=== PATIENT | female | born 2000 | race Caucasian/White ===

== ENCOUNTER → 2022-03-21 | Outpatient (CLI) | payer OTHER | LOC: M WHC 11:36 | PROVIDERS: ATTEND Obstetrics & Gynecology | DX: Z36.89 Encounter for other specified antenatal screening (principal) ==

== ENCOUNTER → 2022-03-28 | Outpatient (CLI) | payer OTHER | LOC: M WHC 11:33 | PROVIDERS: ATTEND Obstetrics & Gynecology | DX: O99.213 Obesity complicating pregnancy, third trimester (principal); Z68.41 Body mass index [BMI] 40.0-44.9, adult; Z3A.35 35 weeks gestation of pregnancy ==

== ENCOUNTER → 2022-04-04 | Outpatient (CLI) | payer OTHER | LOC: M WHC 11:27 | PROVIDERS: ATTEND Obstetrics & Gynecology | DX: O24.410 Gestational diabetes mellitus in pregnancy, diet controlled (principal); O99.213 Obesity complicating pregnancy, third trimester; E66.9 Obesity, unspecified; Z68.41 Body mass index [BMI] 40.0-44.9, adult; Z3A.35 35 weeks gestation of pregnancy ==

== ENCOUNTER → 2022-04-11 | Outpatient (CLI) | payer OTHER | LOC: M WHC 11:02 | PROVIDERS: ATTEND Obstetrics & Gynecology | DX: O99.213 Obesity complicating pregnancy, third trimester (principal); Z3A.35 35 weeks gestation of pregnancy; Z68.41 Body mass index [BMI] 40.0-44.9, adult; O24.410 Gestational diabetes mellitus in pregnancy, diet controlled ==

== ENCOUNTER → 2022-04-18 | Outpatient (CLI) | payer OTHER ==
[~2022-04-18] MED LIST: PRENTAB9 PO
== END ==
LOC: M WHC 11:37
PROVIDERS: ATTEND Obstetrics & Gynecology
DX: O99.210 Obesity complicating pregnancy, unspecified trimester (principal); Z68.41 Body mass index [BMI] 40.0-44.9, adult; Z3A.35 35 weeks gestation of pregnancy

== ENCOUNTER 2022-04-19 15:49 | Inpatient (IN) | payer OTHER ==
[2022-04-19] VITALS (16 sets, daily range): BP systolic 122–179; BP diastolic 71–110
[~2022-04-19] VITALS: Ht 157.5 cm; Wt 115.1 kg
[2022-04-19] MEDS ORDERED: PRENTAB9 PO (16:02)
[2022-04-19] MEDS ORDERED: HOME MED LIST COMPLETE! XX SCH (16:05)
[2022-04-19 17:33] LABS: HEMATOCRIT 40.8 % (36.0-47.0); HEMOGLOBIN 14.2 g/dl (12.0-15.5); MEAN CORPUSCULAR HEMOGLOBIN 31.6 pg (27.0-33.0); MEAN CORPUSCULAR HGB CONC 34.8 g/dl (32.0-36.5); MEAN CORPUSCULAR VOLUME 90.9 fl (80.0-96.0); PLATELET COUNT, AUTOMATED 235 10^3/uL (150-450); RED BLOOD COUNT 4.49 10^6/uL (4.00-5.40); WHITE BLOOD COUNT 9.4 10^3/uL (4.0-10.0)
[2022-04-19 17:44] LABS: APPEARANCE, URINE MANUAL CLEAR (CLEAR); BILIRUBIN, URINE MANUAL NEGATIVE (NEGATIVE); COLOR, URINE MANUAL YELLOW (YELLOW); GLUCOSE, URINE (UA) MANUAL NEGATIVE (NEGATIVE); KETONE, URINE MANUAL 1+ mg/dL (NEGATIVE); NITRITE, URINE MANUAL NEGATIVE (NEGATIVE); PROTEIN, URINE MANUAL NEGATIVE (NEGATIVE); SPECIFIC GRAVITY,URINE MANUAL 1.025 (1.002-1.035); UROBILINOGEN, URINE MANUAL NORMAL (NORMAL)
[2022-04-19 17:45] LABS: BLOOD URINE MANUAL POSITIVE (NEGATIVE); LEUKOCYTE ESTERASE, URINE MAN NEGATIVE (NEGATIVE)
[2022-04-19 17:56] LABS: BACTERIA, URINE SMALL AMOUNT; HYALINE CAST, URINE NONE SEEN /lpf (0-1); MUCUS, URINE SMALL AMOUNT (NEGATIVE); SQUAMOUS EPITHELIAL CELL URINE MOD AMOUNT /hpf (SMALL AMT); WBC, URINE 0-1 /hpf (0-3)
[2022-04-19 18:39] LABS: ALT/SGPT 21 U/L (12-78); BILIRUBIN,TOTAL 0.3 MG/DL (0.2-1.0); GLOMERULAR FILTRATION RATE > 60.0 (>60); LDH LACTATE DEHYDROGENASE 251 U/L (84-246); URIC ACID 3.3 MG/DL (2.6-6.0)
[2022-04-19] MEDS ORDERED: LACTATED RINGER'S 1000 ML IV STA (19:09)
[2022-04-19] MEDS ORDERED: LR 1,000 ML IV SCH (19:10)
[2022-04-19] MEDS ORDERED: METHYLERGONOVINE MALEATE 0.2 MG/ML VIAL (J2210) IM PRN (19:10)
[2022-04-19] MEDS ORDERED: CARBOPROST TROMETHAMINE 250 MCG/ML AMP IM PRN (19:10)
[2022-04-19] MEDS ORDERED: LIDOCAINE 1% MDV 20ML VIAL INFIL PRN (19:10)
[2022-04-19] MEDS ORDERED: OXYTOCIN DRIP 30 UNITS in IV 1 EA IV PRN ×6 (19:10)
[2022-04-19] MEDS ORDERED: OXYTOCIN INJ 10 UNITS/ML VIAL (J2590) IM PRN (19:10)
[2022-04-19] MEDS ORDERED: TRANEXAMIC ACID INJection 1,000 MG in NS 100 ML IV PRN (19:10)
[2022-04-19] MEDS ORDERED: fentaNYL 100 MCG/2 ML INJECTION As Ordered ONE (21:09)
[2022-04-19] MEDS ORDERED: FENTANYL 2MCG/ML ROPIVACAINE 0.2% IN 0.9% NACL 100ML IVBAG As Ordered ONE (21:10)
[2022-04-19] MEDS ORDERED: EPIDURAL/PCA KEYS XX PRN (21:15)
[2022-04-19] MEDS ORDERED: diphenhydrAMINE 50MG/ML VIAL (J1200) IV PRN (21:15)
[2022-04-19] MEDS ORDERED: ePHEDrine SULFATE 25 MG/5 ML(5MG/ML) SYRINGE IVP PRN (21:15)
[2022-04-19] MEDS ORDERED: NALOXONE INJ 0.4MG/1ML VIAL (J2310 PER 1MG) IV PRN (21:15)
[2022-04-19] MEDS ORDERED: LR 500 ML IV PRN (21:15)
[2022-04-19] MEDS ORDERED: FENTANYL/ROPIVACAINE/NACL BAG 100 ML EPIDURAL SCH (21:15)
[2022-04-19] MEDS ORDERED: ONDANSETRON 4MG 2ML VIAL IV PRN (21:15)
[2022-04-20] VITALS (13 sets, daily range): BP systolic 122–172; BP diastolic 70–92
[2022-04-20 04:51] LABS: CORD GAS ABE A -5.4; CORD GAS ABE V -5.4; CORD GAS HCO3 A 20.9 MEQ/L; CORD GAS HCO3 V 20.8 MEQ/L; CORD GAS O2 SAT A 47.6 %; CORD GAS O2 SAT V 51.9 %; CORD GAS PCO2 A 43.1 mmHg; CORD GAS PH A 7.303 UNITS; CORD GAS PH V 7.303 UNITS; CORD GAS PO2 A 20.8 mmHg; CORD GAS PO2 V 21.8 mmHg; CORD GAS SBC A 18.8 MEQ/L; CORD GAS SBC V 18.9 MEQ/L; CORD GAS TCO2 A 22.2 MEQ/L; CORD GAS TCO2 V 22.1 MEQ/L
[2022-04-20] MEDS ORDERED: ACETAMINOPHEN 500 MG TAB PO PRN (06:05)
[2022-04-20] MEDS ORDERED: IBUPROFEN 800 MG TAB PO PRN (06:05)
[2022-04-20] MEDS ORDERED: DIBUCAINE 1% OINTMENT 30GM TOP PRN (06:05)
[2022-04-20] MEDS ORDERED: METHYLERGONOVINE MALEATE 0.2 MG TAB PO PRN (06:05)
[2022-04-20] MEDS ORDERED: RHOGAM 300 MCG (1500 IU) INJ (J2790) IM SCH (06:05)
[2022-04-20] MEDS ORDERED: ACETAMINOPHEN TAB 650MG DOSE (2X325MG) PO PRN (06:05)
[2022-04-20] MEDS: LABETALOL 200 MG TAB PO SCH ×2 (07:40→23:01)
[2022-04-20] MEDS: PRENATAL VITAMINS CHEWABLE TABLET PO SCH (09:00)
[2022-04-20] MEDS ORDERED: PRENATAL VITAMINS CHEWABLE TABLET PO SCH (09:00)
[2022-04-20] MEDS: DOCUSATE SODIUM 100MG CAPSULE PO SCH ×2 (21:00→23:01)
[2022-04-21 06:30] VITALS: BP 128/88
[2022-04-21 06:47] VITALS: BP 128/88
[2022-04-21] MEDS: DOCUSATE SODIUM 100MG CAPSULE PO SCH ×2 (08:12→21:19)
[2022-04-21] MEDS: PRENATAL VITAMINS CHEWABLE TABLET PO SCH (08:12)
[2022-04-21] MEDS: IBUPROFEN 600MG TAB PO PRN ×2 (08:12→21:21)
[2022-04-21] MEDS: LABETALOL 200 MG TAB PO SCH ×2 (08:12→21:20)
[2022-04-21 09:55] LABS: HEMATOCRIT 36.1 % (36.0-47.0); HEMOGLOBIN 12.3 g/dl (12.0-15.5); MEAN CORPUSCULAR HEMOGLOBIN 31.7 pg (27.0-33.0); MEAN CORPUSCULAR HGB CONC 34.1 g/dl (32.0-36.5); PLATELET COUNT, AUTOMATED 192 10^3/uL (150-450); RED BLOOD COUNT 3.88 10^6/uL (4.00-5.40)
[2022-04-21 18:00] VITALS: BP 126/76
[2022-04-22 06:00] VITALS: BP_SYST 130; BP_SYST 94; BP_DIAS 47; BP_DIAS 82
[2022-04-22] MEDS ORDERED: ACET1TAB55 PO (08:13)
[2022-04-22] MEDS ORDERED: IBUP-1022 PO (08:13)
[2022-04-22] MEDS ORDERED: LABE20TAB PO (08:13)
[2022-04-22] MEDS ORDERED: MEASLES,MUMPS,RUBELLA VACCINE INJ (MMR-II) (90707) SC.IMMUN ONE (09:00)
[2022-04-22] MEDS: DOCUSATE SODIUM 100MG CAPSULE PO SCH (09:29)
[2022-04-22] MEDS: PRENATAL VITAMINS CHEWABLE TABLET PO SCH (09:29)
[2022-04-22 09:30] VITALS: BP 156/92
[2022-04-22] MEDS: LABETALOL 200 MG TAB PO SCH (09:30)
== END 2022-04-22 15:21 | disposition home or self-care (01) | DRG 807 ==
LOC: M LDO 15:49 → M LDI 19:08 → M OBS 04-20 07:48
PROVIDERS: ADMIT Registered Nurse; ATTEND Registered Nurse
PROC: 10E0XZZ Delivery of Products of Conception, External Approach (ICD-10-PCS; principal; 2022-04-20)
PROC: 0HQ9XZZ Repair Perineum Skin, External Approach (ICD-10-PCS; 2022-04-20)
DX: O13.4 Gestational [pregnancy-induced] hypertension without significant proteinuria, complicating childbirth (principal); Z37.0 Single live birth; Z3A.37 37 weeks gestation of pregnancy; O70.0 First degree perineal laceration during delivery

== ENCOUNTER 2023-11-14 00:13 | Emergency (ER) | payer OTHER ==
[~2023-11-14] VITALS: Ht 157.5 cm; Wt 113.1 kg
[~2023-11-14 00:13] MED LIST changes: +ACET1TAB55 PO; +IBUP-1022 PO; +LABE20TAB PO
[2023-11-14] MEDS ORDERED: NALT50TA4 (00:25)
[2023-11-14] MEDS ORDERED: BUPR150T12 (00:25)
[2023-11-14] MEDS: LIDOCAINE 1% MDV 20ML VIAL SC ONE (01:15)
[2023-11-14 01:37] VITALS: BP 138/76; TEMP 98.1; O2SAT 98
== END 2023-11-14 01:38 | disposition home or self-care (01) ==
LOC: M ED 00:13
DX: F41.9 Anxiety disorder, unspecified (principal)

== ENCOUNTER 2024-01-19 11:44 | Emergency (ER) | payer OTHER ==
[~2024-01-19] VITALS: Ht 157.5 cm; Wt 110.8 kg
[2024-01-19 11:44] VITALS: BP 132/79; TEMP 97.9; O2SAT 97
[~2024-01-19 11:44] MED LIST changes: +BUPR150T12; +NALT50TA4
== END 2024-01-19 12:27 | disposition home or self-care (01) ==
LOC: M ED 11:44
DX: J06.9 Acute upper respiratory infection, unspecified (principal); F41.9 Anxiety disorder, unspecified; Z91.048 Other nonmedicinal substance allergy status